=== PATIENT | female | born 1990 | race Two or more races ===

== ENCOUNTER 2017-07-14 08:16 | Emergency (ER) | payer OTHER ==
[~2017-07-14] VITALS: Ht 154.9 cm; Wt 181.4 kg
[2017-07-14 09:55] LABS: Basophils # (auto) 0.1 uL; Basophils % (auto) 0.8 % (0.0-2.0); Eosinophils # (auto) 0.2 uL; Eosinophils % (auto) 2.1 % (0.0-7.0); Hematocrit 32.6 % (36.0-46.0); Hemoglobin 10.6 g/dL (12.2-16.2); Lymphocytes % (auto) 22.5 % (10.0-50.0); Mean Corpuscular Hemoglobin 29.7 pg (28.0-32.0); Mean Corpuscular Hgb Conc. 32.6 g/dL (32.0-36.0); Mean Corpuscular Volume 91.2 fL (80.0-100.0); Monocytes # (auto) 0.4 uL; Monocytes % (auto) 4.1 % (0.0-12.0); Neutrophils # (auto) 6.4 uL; Neutrophils % (auto) 70.5 % (37.0-80.0); Nucleated Red Blood Cells % 0.1 %; Platelet Count (auto) 240 10^3/uL (140-450); Red Blood Cells 3.58 10^6/uL (4.0-5.20); Red Cell Distribution Width 16.3 % (11.8-14.3); White Blood Cell 9.1 10^3/uL (4.4-10.8)
[2017-07-14 10:17] LABS: Albumin 3.5 g/dL (3.4-5.0); BUN/Creatinine Ratio 8.5; Bilirubin, Total 0.4 mg/dL (0.2-1.0); Calcium 8.1 mg/dL (8.5-10.1); Potassium 3.3 mmol/L (3.5-5.1); Total Protein 8.5 g/dL (6.4-8.2)
[2017-07-14] MEDS ORDERED: medroxyPROGESTERone ACETATE 5 MG TAB PO ONE (11:15)
[2017-07-14] MEDS ORDERED: POTASSIUM CHL 10% (20 MEQ/15ML) 15ml ORAL SOLN PO ONE (11:30)
[2017-07-14 12:33] VITALS: BP 124/71
== END 2017-07-14 13:00 | disposition home or self-care (01) ==
LOC: ER 08:16
DX: N93.8 Other specified abnormal uterine and vaginal bleeding (principal)
CPT/HCPCS: 36415; 80053; 84702; 85025